=== PATIENT | male | born 1970 | race Caucasian/White ===

== ENCOUNTER 2022-07-04 07:44 | Emergency (ER) | payer OTHER ==
[2022-07-04 08:47] LABS: MPV 8.9 fL (7.6-11.3)
[2022-07-04 08:50] LABS: Absolute Lymphocytes (CBC) 2.2 K/uL (0.7-4.9); Hematocrit 50.9 % (39.6-49.0); Lymphocytes % 16.3 % (15.3-44.8); MCV 92.6 fL (80-100); RBC Red Blood Cell Count 5.49 M/uL (4.33-5.43)
[2022-07-04 08:54] LABS: Albumin 4.1 g/dL (3.4-5.0); Bilirubin Total 1.5 mg/dL (0.2-1.0); Potassium 3.8 mmol/L (3.5-5.1); Protein, Total 8.5 g/dL (6.4-8.2)
[2022-07-04 08:55] LABS: Troponin High Sensitivity 4052.7 pg/mL (<58.9)
--- NOTE | 2022-07-04 09:37 | RAD REPORT ---
EXAM DESCRIPTION: RAD - Chest Single View - 07/04/2022 8:43 am CLINICAL HISTORY: DYSPNEA Chest pain. COMPARISON: No comparisons FINDINGS: Portable technique limits examination quality. Mild pulmonary edema. The heart is mildly prominent. No displaced fractures. IMPRESSION: Mild CHF.
[2022-07-04] MEDS ORDERED: ATORVASTATIN 40 MG TAB ONE (11:07)
[2022-07-04] MEDS ORDERED: ASPIRIN 325 MG TAB ONE (11:07)
[2022-07-04] MEDS ORDERED: HEPARIN 5000 UNIT/ML 1 ML VIAL ONE (11:07)
[2022-07-04] MEDS ORDERED: FUROSEMIDE 40 MG/4 ML VIAL ONE (11:07)
[2022-07-04] MEDS ORDERED: KCL 20 MEQ/100 mL IVPB 200 ML IV ONE (11:08)
[2022-07-04] MEDS ORDERED: HEPARIN/D5W 25,000 UNIT/500 ML BAG IV ONE (11:09)
[2022-07-04 11:20] LABS: Protime INR 1.19
[2022-07-04] MEDS ORDERED: NA CHLORIDE 0.9% 1,000 ML ONE (11:26)
[2022-07-04 17:01] VITALS: BP 108/68; O2SAT 94
--- NOTE | 2022-07-05 13:05 | EKG ---
Test Date: 2022-07-04 Test Time: 07:12:13 Radiology Manager: TIMOTHY MEASUREMENT RESULTS: Intervals: Rate: 104 KS: 146 QRSD: 90 QT: 384 QTc: 504 [place]: P: 61 KS: 146 QRS: 99 T: 38 INTERPRETIVE STATEMENTS: Sinus tachycardia Rightward axis Borderline ECG No previous ECG available for comparison Electronically Signed On 07-05-22 13:02:43 CDT by Nils Truong
--- NOTE | 2022-07-16 17:18 | EDPHYS ---
Physician Documentation [facility] Name: Eric Arvizu Age: 52 yrs Sex: Male : 1970 Arrival Date: 07/04/2022 Time: 07:47 Bed 7 Private MD: ED Physician Marck Rubio HPI: 07/04 08:11 This 52 yrs old Male presents to ER via EMS with complaints of Chest Pain, Shortness Of rt Breath. 08:11 Patient presents to the ED from [facility] for shortness of breath and chest pain that woke rt him up at about 2 AM. It is worse with exertion, sitting upright. Patient does report a cough, reports a small amount of blood coming from the cough. Patient's oxygen saturations were reportedly 85% on 15 L from the [facility], room air saturation is not known. Patient was placed on CPAP, given nitrates, given Lasix with significant improvement of the symptoms, reports only mild dyspnea mild chest pain at this time. Denies other acute complaints, symptoms are severe in severity, no other aggravating or alleviating factors.. Historical: - Allergies: 07:50 No Known Allergies; ld1 - Home Meds: 07:50 lisinopril Oral [Active]; diuretic [Active]; atorvastatin 20 mg oral tablet once ld1 [Active]; metformin 500 mg/5 mL Oral suspension, ER, reconstituted daily [Active]; - PMHx: 07:50 Congestive heart failure; Diabetes mellitus; Hepatitis C; ld1 - PSHx: 07:50 Heart attack; ld1 - Immunization history:: Adult Immunizations up to date, Client reports receiving the 2nd dose of the Covid vaccine. - Social history:: Smoking status: Patient denies any tobacco usage or history of. Patient/guardian denies using alcohol. - Family history:: not pertinent. ROS: 08:11 Constitutional: Negative for fever, chills, and weight loss, Eyes: Negative for injury, rt pain, redness, and discharge, Abdomen/GI: Negative for abdominal pain, nausea, vomiting, diarrhea, and constipation, MS/Extremity: Negative for injury and deformity, Skin: Negative for injury, rash, and discoloration, Neuro: Negative for headache, weakness, numbness, tingling, and seizure, Psych: Negative for depression, anxiety, suicide ideation, homicidal ideation, and hallucinations. 08:11 Cardiovascular: Positive for chest pain, edema. 08:11 Respiratory: Positive for cough, shortness of breath. Exam: 08:11 Constitutional: This is a well developed, well nourished patient who is awake, alert, rt and in no acute distress. Head/Face: Normocephalic, atraumatic. Chest/axilla: Normal chest wall appearance and motion. Nontender with no deformity. No lesions are appreciated. Cardiovascular: Regular rate and rhythm with a normal S1 and S2. No gallops, murmurs, or rubs. Normal PMI, no JVD. No pulse deficits. Abdomen/GI: Soft, non-tender, with normal bowel sounds. No distension or tympany. No guarding or rebound. No evidence of tenderness throughout. Skin: Warm, dry with normal turgor. Normal color with no rashes, no lesions, and no evidence of cellulitis. MS/ Extremity: Pulses equal, no cyanosis. Neurovascular intact. Full, normal range of motion. Neuro: Awake and alert, GCS 15, oriented to person, place, time, and situation. Cranial nerves II-XII grossly intact. Motor strength 5/5 in all extremities. Sensory grossly intact. Cerebellar exam normal. Normal gait. Psych: Awake, alert, with orientation to person, place and time. Behavior, mood, and affect are within normal limits. 08:11 Respiratory: Bibasilar crackles, no respiratory distress. 08:25 ECG was reviewed by the Attending Physician. rt Vital Signs: 07:45 BP 126 / 87; Pulse 108; Resp 20; Pulse Ox 96% ; ko1 07:47 BP 118 / 92; Pulse 59; Resp 18; Temp 97.9(TE); Pulse Ox 96% on R/A; Weight 112.49 kg; ld1 Height 5 ft. 10 in. ; Pain 6/10; 08:00 BP 103 / 75; Pulse 101; Resp 18; Pulse Ox 96% ; ko1 08:15 BP 107 / 73; Pulse 108; Resp 16; Pulse Ox 95% ; ko1 08:30 BP 107 / 75; Pulse 107; Resp 18; Pulse Ox 95% ; ko1 09:28 BP 108 / 68; Pulse 100; Resp 18; Pulse Ox 94% on R/A; ld1 11:21 BP 92 / 66; Pulse 99; Resp 18; Pulse Ox 100% on R/A; ld1 13:48 BP 103 / 82; Pulse 100; Resp 17; Pulse Ox 95% on R/A; ld1 07:47 Body Mass Index 35.58 (112.49 kg, 177.8 cm) ld1 07:47 Pain Scale: Adult ld1 MDM: 07:47 Patient medically screened. rt 10:08 Differential diagnosis: CHF, MS, pulmonary edema, pulmonary embolism, pneumonia. rt 10:09 The patient was given aspirin in the Emergency Department. Data reviewed: vital signs, rt nurses notes, lab test result(s), EKG, radiologic studies. Consideration of Admission/Observation Patient was admitted/placed on observation. I considered the following discharge prescriptions or medication management in the emergency department Medications were administered in the Emergency Department. See MAR. Independent interpretation of the following test(s) in the Emergency Department X-Ray: My interpretation is Pulmonary edema seen on my interpretation of the x-ray images. Test considered but Not performed: CT: Low suspicion for pulmonary embolism, CT angiogram not indicated. Care significantly affected by the following chronic conditions: Hypertension, Congestive Heart Failure. Counseling: I had a detailed discussion with the patient and/or guardian regarding: the historical points, exam findings, and any diagnostic results supporting the discharge/admit diagnosis, lab results, radiology results, the need for further work-up and treatment in the hospital. Response to treatment: the patient's symptoms have markedly improved after treatment. 07/04 07:48 Order name: Troponin High Sensitivity; Complete Time: 08:56 rt 07/04 07:48 Order name: BNP; Complete Time: 08:56 rt 07/04 07:48 Order name: CBC with Diff; Complete Time: 08:56 rt 07/04 07:48 Order name: CMP; Complete Time: 08:56 rt 07/04 09:59 Order name: Ptt, Activated rt 07/04 09:59 Order name: PT-INR rt 07/04 10:16 Order name: SARS-COV-2 RT PCR kj1 07/04 10:46 Order name: Lactate w/ 2H reflex if indic. rt 07/04 07:48 Order name: Chest Single View XRAY; Complete Time: 09:38 rt 07/04 07:48 Order name: EKG; Complete Time: 07:49 rt 07/04 07:48 Order name: EKG - Nurse/Tech; Complete Time: 08:14 rt 03 10:46 Order name: NPO; Complete Time: 10:49 rt EC:25 Rate is 104 beats/min. Rhythm is regular, Sinus tachycardia with No ectopy. Right axis rt deviation noted. AR interval is normal. QRS interval is normal. QT interval is prolonged at 504 msec. No Q waves. T waves are Normal. No ST changes noted. Administered Medications: 11:10 Drug: Aspirin PO 325 mg Route: PO; nj1 11:10 Drug: Atorvastatin PO 80 mg Route: PO; nj1 11:10 Drug: Furosemide IVP 40 mg Route: IVP; Site: left hand; nj1 11:16 Drug: Heparin ([place]-Bolus No thrombolytic) - HEParin IVP 60 units/kg {Co-Signature: satya rice1 (Paulette Win RN).} Route: IVP; Site: left hand; 11:17 Drug: Heparin ([place] Drip) - (D5W IV 500 ml, [place] [address] units) 12 units/kg/hr ld1 {Co-Signature: cassandra1 (Sondra Almonte RN).} Route: IV; Rate: calculated rate; Site: left hand; 11:29 Drug: Potassium Chloride IV 40 mEq Route: IV; Rate: calculated rate; Site: right ld1 antecubital; Disposition: 11:03 Critical Care:. rt Disposition Summary: 07/04/22 10:12 Transfer Ordered Transfer Location: [facility] rt Reason: Higher level of care rt Condition: Fair rt Problem: an acute exacerbation rt Symptoms: have improved rt Accepting Physician: Dr. Connor(07/04/22 14:14) aa5 Diagnosis - Acute on chronic systolic (congestive) heart failure rt - Subsequent non-ST elevation (NSTEMI) myocardial infarction rt - Acute respiratory failure with hypoxia rt Forms: - Medication Reconciliation Form rt - SBAR form rt Critical care time excluding procedures: 11:03 Critical care time: Bedside Care: 30 minutes, Consultation: 10 minutes. Total time: 40 rt minutes Signatures: Dispatcher [employer] Elsie Coyle RN RN aa5 Catarina Moore RN RN ld1 Marck Rubio MD MD rt Sondra Almonte RN RN nj1 Paulette Win RN ko1 Gage, Sondra RN nj1 Corrections: (The following items were deleted from the chart) 10:50 10:12 Dr. duncan rt 14:14 10:50 Dr. Connor rt aa5
--- NOTE | 2022-07-16 17:18 | ER ---
Nurse's Notes [facility] Name: Eric Arvizu Age: 52 yrs Sex: Male : 1970 Arrival Date: 07/04/2022 Time: 07:47 Bed 7 Private MD: Diagnosis: Acute on chronic systolic (congestive) heart failure;Subsequent non-ST elevation (NSTEMI) myocardial infarction;Acute respiratory failure with hypoxia Presentation: 07/04 07:47 Chief complaint: EMS states: toned out to [facility] for chest pain \T\ SOB. Pt reports ld1 being woken up by chest pain - upon arrival EMS reports 86% 15lpm - EMS placed patient on CPAP en route to ER. Pt now on 4L NC - pt reports SOB is not as bad. Coronavirus screen: At this time, the client does not indicate any symptoms associated with coronavirus-19. Ebola Screen: No symptoms or risks identified at this time. Initial Sepsis Screen: Does the patient meet any 2 criteria? No. Patient's initial sepsis screen is negative. Does the patient have a suspected source of infection? No. Patient's initial sepsis screen is negative. Risk Assessment: Do you want to hurt yourself or someone else? Patient reports no desire to harm self or others. Onset of symptoms was July 04, 2022 at 07:50. 07:47 Method Of Arrival: EMS: [facility] ld1 07:47 Acuity: CHEVY 3 ld1 Triage Assessment: 07:50 General: Appears in no apparent distress. comfortable, Behavior is calm, cooperative, ld1 appropriate for age. Pain: Complains of pain in chest Pain does not radiate. Pain currently is 6 out of 10 on a pain scale. Quality of pain is described as throbbing, Pain began 2 hours ago. Is continuous. EENT: EENT: No signs and/or symptoms were reported regarding the EENT system. Neuro: Level of Consciousness is awake, alert, obeys commands, Oriented to person, place, time, situation. Cardiovascular: Capillary refill < 3 seconds Patient's skin is warm and dry. Cardiovascular: Reports chest pain. Respiratory: Airway is compromised Respiratory effort is even, unlabored. GI: Abdomen is round non-distended. : No signs and/or symptoms were reported regarding the genitourinary system. Derm: No signs and/or symptoms reported regarding the dermatologic system. Musculoskeletal: No signs and/or symptoms reported regarding the musculoskeletal system. Historical: - Allergies: 07:50 No Known Allergies; ld1 - Home Meds: 07:50 lisinopril Oral [Active]; diuretic [Active]; atorvastatin 20 mg oral tablet once ld1 [Active]; metformin 500 mg/5 mL Oral suspension, ER, reconstituted daily [Active]; - PMHx: 07:50 Congestive heart failure; Diabetes mellitus; Hepatitis C; ld1 - PSHx: 07:50 Heart attack; ld1 - Immunization history:: Adult Immunizations up to date, Client reports receiving the 2nd dose of the Covid vaccine. - Social history:: Smoking status: Patient denies any tobacco usage or history of. Patient/guardian denies using alcohol. - Family history:: not pertinent. Screenin:54 [facility] ED Fall Risk Assessment (Adult) History of falling in the last 3 months, ld1 including since admission. Abuse screen: Denies threats or abuse. Denies injuries from another. Nutritional screening: No deficits noted. Tuberculosis screening: No symptoms or risk factors identified. Assessment: 07:54 Reassessment: See triage assessment. ld1 09:28 Reassessment: Patient appears in no apparent distress at this time. Patient is alert, ld1 oriented x 3, equal unlabored respirations, skin warm/dry/pink. Cardiovascular: Capillary refill < 3 seconds Patient's skin is warm and dry. Rhythm is sinus rhythm. 11:21 Reassessment: Patient appears in no apparent distress at this time. Patient and/or ld1 family updated on plan of care and expected duration. Pain level reassessed. Patient is alert, oriented x 3, equal unlabored respirations, skin warm/dry/pink. 12:08 Reassessment: Pt refusing potassium - burning arm with NS going. Pt demanding to take ld1 IV out. Refusing potassium at this time. 13:48 Reassessment: No changes from previously documented assessment. Patient and/or family ld1 updated on plan of care and expected duration. Pain level reassessed. Patient is alert, oriented x 3, equal unlabored respirations, skin warm/dry/pink. Vital Signs: 07:45 BP 126 / 87; Pulse 108; Resp 20; Pulse Ox 96% ; ko1 07:47 BP 118 / 92; Pulse 59; Resp 18; Temp 97.9(TE); Pulse Ox 96% on R/A; Weight 112.49 kg; ld1 Height 5 ft. 10 in. ; Pain 6/10; 08:00 BP 103 / 75; Pulse 101; Resp 18; Pulse Ox 96% ; ko1 08:15 BP 107 / 73; Pulse 108; Resp 16; Pulse Ox 95% ; ko1 08:30 BP 107 / 75; Pulse 107; Resp 18; Pulse Ox 95% ; ko1 09:28 BP 108 / 68; Pulse 100; Resp 18; Pulse Ox 94% on R/A; ld1 11:21 BP 92 / 66; Pulse 99; Resp 18; Pulse Ox 100% on R/A; ld1 13:48 BP 103 / 82; Pulse 100; Resp 17; Pulse Ox 95% on R/A; ld1 07:47 Body Mass Index 35.58 (112.49 kg, 177.8 cm) ld1 07:47 Pain Scale: Adult ld1 ED Course: 07:47 Patient arrived in ED. ld1 07:47 Marck Rubio MD is Attending Physician. rt 07:50 Triage completed. ld1 07:50 Arm band placed on right wrist. ld1 07:54 Patient has correct armband on for positive identification. Placed in gown. Bed in low ld1 position. Call light in reach. Side rails up X2. Pulse ox on. NIBP on. diesel mechanic apprentice on. Door closed. Noise minimized. Warm blanket given. 07:54 No provider procedures requiring assistance completed. Oxygen administration via nasal ld1 cannula \T\ 4L/min. 08:45 Chest Single View XRAY In Process Unspecified. EDMS 11:16 called \T\1020 to transfer spoke with Eric \T[facility] [address] valdez [address] H[place] and awaiting eta of transport. 11:17 Inserted saline lock: 20 gauge in right antecubital area, using aseptic technique. nj1 11:29 Catarina Moore, RAÚL is Primary Nurse. ld1 12:08 IV discontinued, bleeding controlled, Pt states it is painful. nj1 Administered Medications: 11:10 Drug: Aspirin PO 325 mg Route: PO; nj1 11:10 Drug: Atorvastatin PO 80 mg Route: PO; nj1 11:10 Drug: Furosemide IVP 40 mg Route: IVP; Site: left hand; nj1 11:16 Drug: Heparin ([place]-Bolus No thrombolytic) - HEParin IVP 60 units/kg {Co-Signature: satya rice1 (Paulette Win RN).} Route: IVP; Site: left hand; 11:17 Drug: Heparin ([place] Drip) - (D5W IV 500 ml, [place] [address] units) 12 units/kg/hr ld1 {Co-Signature: cassandra1 (Sondra Almonte RN).} Route: IV; Rate: calculated rate; Site: left hand; 11:29 Drug: Potassium Chloride IV 40 mEq Route: IV; Rate: calculated rate; Site: right ld1 antecubital; Medication: 07:54 VIS not applicable for this client. ld1 Outcome: 10:12 ER care complete, transfer ordered by . rt 14:14 Patient left the ED. aa5 Signatures: Dispatcher [employer] Elsie Coyle RN RN aa5 Lurdes Rivers kj1 Catarina Moore RN RN ld1 Paulette Win, RN RN ko1 Marck Rubio MD MD rt Sondra Almonte RN RN nj1 Paulette Win RN1 Sondra Almonte RN1
== END 2022-07-04 14:14 | disposition short-term general hospital (02) ==
LOC: ER 07:44
DX: I50.23 Acute on chronic systolic (congestive) heart failure (principal); I22.9 Subsequent ST elevation (STEMI) myocardial infarction of unspecified site; I21.9 Acute myocardial infarction, unspecified; J96.01 Acute respiratory failure with hypoxia; E11.9 Type 2 diabetes mellitus without complications; Z20.822 Contact with and (suspected) exposure to COVID-19
CPT/HCPCS: 93005; 85025; 36415; 85610; 83605; 85730; 84484; 80053; 83880; 71045; 99285; U0003; J1644; J3480; J1940; J7030